=== PATIENT | male | born 1975 | race Caucasian/White ===

== ENCOUNTER 2022-03-22 13:06 | Day surgery (SDC) | payer OTHER ==
[2022-03-22] MEDS ORDERED: Decadron 4 MG INJ IV ONE (13:07)
[2022-03-22] MEDS ORDERED: Xylocaine 1% Vial 30 ML PF IJ ONE (13:07)
[2022-03-22] MEDS ORDERED: Sodium Chloride 0.9(Preservative Free) 10 ML IJ ONE (13:07)
--- NOTE | 2022-03-22 17:27 | XRAY ---
Indication: Cervical FLORENCE. Intraoperative fluoroscopy provided for 48 seconds. 4 digital spot image submitted for interpretation demonstrates midline posterior needle tip projecting posterior to the cervical thoracic junction. Small amount of contrast injected for needle tip placement. Correlate with intraoperative findings/report.
--- NOTE | 2022-03-22 17:46 | XRAY ---
48 seconds fluoroscopy time in surgery for cervical FLORENCE.
== END 2022-03-22 14:45 | disposition home or self-care (01) ==
LOC: SDC-PAIN 13:06
PROVIDERS: ATTEND Psychiatry & Neurology Pain Medicine
DX: M54.12 Radiculopathy, cervical region (principal); Z79.899 Other long term (current) drug therapy
CPT/HCPCS: 62321; 72040; 77003; J1100; J2001; Q9966